=== PATIENT | female | born 1965 | race Caucasian/White ===

== ENCOUNTER 2022-06-04 18:31 | Emergency (ER) | payer MEDICARE, MEDICAID ==
[~2022-06-04] VITALS: Ht 160 cm; Wt 47.7 kg
[2022-06-04] MEDS ORDERED: ATOR40TA28 PO (18:44)
[2022-06-04] MEDS ORDERED: AMLO-258 PO (18:44)
[2022-06-04] MEDS ORDERED: ASPI-1227 PO (18:44)
[2022-06-04] MEDS ORDERED: OXYB5TAB20 PO (18:44)
[2022-06-04] MEDS ORDERED: CHOL400T56 PO (18:45)
[2022-06-04] MEDS ORDERED: PYRI-6 PO (18:45)
[2022-06-04] MEDS ORDERED: PSYL575P22 PO (18:45)
[2022-06-04 22:42] LABS: BASOPHILS % (AUTO) 0.3 % (0.0-2.0); EOSINOPHILS % (AUTO) 0 % (1.0-6.0); HEMATOCRIT 38.2 % (36-46); HEMOGLOBIN 12.8 g/dL (12.0-16.0); LYMPHOCYTES # (AUTO) 0.4 K/uL (1.0-4.8); LYMPHOCYTES % (AUTO) 1.9 % (22.0-44.0); MEAN CORPUSCULAR HGB CONC 33.5 G/dL (31.0-37.0); MEAN CORPUSCULAR VOLUME 92 fL (80-100); MONOCYTES # (AUTO) 1.1 K/uL (0.1-1.0); MONOCYTES % (AUTO) 4.9 % (2.0-9.0); NEUTROPHILS # (AUTO) 21.6 K/uL (1.8-7.7); PLATELET COUNT (AUTO) 228 K/uL (150-450); RED BLOOD CELL COUNT(AUTO) 4.14 MIL/uL (4.00-5.20)
[2022-06-04 22:45] LABS: ANION GAP 8 mmol/L (8-16); CALCIUM, TOTAL 9.6 mg/dL (8.8-10.5); CARBON DIOXIDE 30 mmol/L (22-29); CHLORIDE 101 mmol/L (98-107); GLUCOSE,RANDOM 236 mg/dL (70-110); NEUTROPHILS % (AUTO) 92.9 % (40.0-70.0); POTASSIUM 3.9 mmol/L (3.5-5.1); SODIUM SERUM 139 mmol/L (136-145); UREA NITROGEN, BLOOD 29 mg/dL (7-18)
[2022-06-04 22:46] LABS: GLOMERULAR FILTR. RATE CALC > 60 mL/min (>60)
[2022-06-05 01:09] LABS: APPEARANCE,URINE CLEAR (CLEAR); BILIRUBIN,URINE NEGATIVE (NEGATIVE); GLUCOSE, URINE (UA) >=1000 mg/dL (NEGATIVE); KETONES,URINE NEGATIVE (NEGATIVE); LEUKOCYTE ESTERASE ,URINE NEGATIVE (NEGATIVE); NITRATE,URINE NEGATIVE (NEGATIVE); OCCULT BLOOD,URINE NEGATIVE (NEGATIVE); PH,URINE 6.5 (5.0-8.0); PROTEIN,URINE NEGATIVE (NEGATIVE); SPECIFIC GRAVITIY, URINE 1.029 (1.003-1.030); UROBILINOGEN,URINE <=1.0 mg/dL (<=1.0)
[2022-06-05 01:22] LABS: BACTERIA,URINE None Seen /HPF (None Seen); RBC,URINE None Seen /HPF (0-2); SQUAMOUS EPITHELIAL CELL,UR None Seen /LPF (None Seen); WBC,URINE None Seen /HPF (0-5)
[2022-06-05 01:37] VITALS: BP 124/73
== END 2022-06-05 02:00 | disposition home or self-care (01) ==
LOC: EMS 20:36
DX: R55 Syncope and collapse (principal); D72.829 Elevated white blood cell count, unspecified; I10 Essential (primary) hypertension; E78.00 Pure hypercholesterolemia, unspecified; Z88.1 Allergy status to other antibiotic agents; Z88.8 Allergy status to other drugs, medicaments and biological substances
CPT/HCPCS: 70450; 71045; 80048; 81001; 84484; 85025; 93005; 99285; 36415-L1; 36415-TC